=== PATIENT | male | born 2000 | race Caucasian/White ===

== ENCOUNTER 2018-10-06 19:29 | Emergency (ER) | payer BC, MEDICAID ==
[2018-10-06] MEDS ORDERED: Ibuprofen TAB* 600 MG PO ONE (20:31)
[2018-10-06 21:01] LABS: Urine Appearance Clear; Urine Bilirubin Negative (Negative); Urine Blood Negative (Negative); Urine Color Straw; Urine Glucose Negative (Negative); Urine Ketones Negative (Negative); Urine Nitrite Negative (Negative); Urine Protein Negative (Negative); Urine Specific Gravity 1.005 (1.010-1.030); Urine Urobilinogen Negative (Negative)
[2018-10-06 21:39] VITALS: BP 117/61
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
== END 2018-10-06 21:40 | disposition home or self-care (01) ==
LOC: ED 19:29
DX: S09.93XA Unspecified injury of face, initial encounter (principal); M79.644 Pain in right finger(s); Y09 Assault by unspecified means; Y92.9 Unspecified place or not applicable; Z87.891 Personal history of nicotine dependence; R51 Headache
CPT/HCPCS: 71046; 81003; 99282; A9270-GY